=== PATIENT | female | born 1985 | race Hispanic/Latino ===

== ENCOUNTER 2017-05-27 17:20 | Emergency (ER) | payer OTHER ==
[~2017-05-27] VITALS: Ht 149.9 cm; Wt 51.7 kg
[2017-05-27] MEDS ORDERED: ACETAMINOPHEN 325 MG TAB PO ONE (18:15)
== END 2017-05-27 20:55 | disposition home or self-care (01) ==
LOC: ER 17:20 → FSED 20:55
DX: O20.9 Hemorrhage in early pregnancy, unspecified (principal); R10.2 Pelvic and perineal pain; O03.4 Incomplete spontaneous abortion without complication
CPT/HCPCS: 36415; 76801; 76817; 81025; 84702; 85025; 86900; 99284